=== PATIENT | female | born 1960 ===

== ENCOUNTER 2018-03-30 06:18 | Day surgery (SDC) | payer MEDICARE, OTHER ==
[2018-02-10 11:23] VITALS: BMI 37.8
[2018-03-30] MEDS ORDERED: Midazolam 2 MG/2 ML VIAL ONE (07:55)
[2018-03-30] MEDS ORDERED: Propofol 10 mg/ml Inj (20 ML) ONE (07:55)
[2018-03-30] MEDS ORDERED: Albuterol HFA 90 mcg/actuation (8 g) ONE (07:55)
[2018-03-30] MEDS ORDERED: Lactated Ringer's 1,000 ML IV ONE (08:20)
[2018-03-30 10:14] VITALS: BP 142/77; PULSE 72; RESP 15; TEMP 97.2; O2SAT 95
--- NOTE | 2018-04-04 05:43 | OP ---
Copied To: Jai Sousa MD Attending MD: Jai Sousa MD PROCEDURE DATE: 03/30/2018 PREOPERATIVE DIAGNOSIS: A 57-year-old with abnormal uterine bleeding, POSTOPERATIVE DIAGNOSIS: A 57-year-old with abnormal uterine bleeding SURGEON: Jai Sousa MD FEEDLOT MANAGER: None. ANESTHESIA: General anesthesia. COMPLICATIONS: None. ESTIMATED BLOOD LOSS: 20 mL. PROCEDURE PERFORMED: Dilatation and curettage, hysteroscopy, and MyoSure. DESCRIPTION OF PROCEDURE: After informed consent was obtained, the patient was brought to the operating room, placed on the table where general anesthesia was given. When anesthesia was found to be sufficient, the patient was prepped and draped in the normal sterile fashion. Armstrong catheter was inserted under sterile condition. Anterior lip of the cervix was grasped with a tenaculum. Gentle dilatation of the cervix was performed. Hysteroscope was introduced and was found that there was a polyp on the posterior wall of the uterus. The decision was made to use the MyoSure. MyoSure was introduced to remove the polyp. After that, sharp curettage of anterior of the lizama of the uterus was done, and ECC was sent to the pathology. After that, the hysteroscope was then introduced, no polyp was found. After that, tenaculum was taken out. The patient tolerated the procedure well. Lap, sponge, and instrument counts were correct x2. Jai Sousa MD
== END 2018-03-30 10:13 | disposition home or self-care (01) ==
LOC: C.SDS 06:18
PROVIDERS: ATTEND Obstetrics & Gynecology
DX: N84.0 Polyp of corpus uteri (principal); N95.0 Postmenopausal bleeding; N85.01 Benign endometrial hyperplasia; N93.9 Abnormal uterine and vaginal bleeding, unspecified
CPT/HCPCS: 58558; 88305; J2250; J2704; J3010; J7120

== ENCOUNTER 2018-09-30 14:02 | Outpatient (CLI) | payer MEDICARE | END 2018-09-30 14:03 | disposition home or self-care (01) | LOC: C.RADIC 14:02 ==

== ENCOUNTER 2019-01-05 12:20 | Outpatient (CLI) | payer MEDICARE, OTHER | END 2019-01-05 12:21 | disposition home or self-care (01) | LOC: C.RADIC 12:20 ==

== ENCOUNTER 2019-01-09 13:42 | Outpatient (CLI) | payer MEDICARE, OTHER | END 2019-01-09 13:43 | disposition home or self-care (01) | LOC: C.RADIC 13:42 | DX: Z01.818 Encounter for other preprocedural examination (principal) ==

== ENCOUNTER 2019-01-18 05:41 | Day surgery (SDC) | payer MEDICARE, OTHER ==
[2019-01-17 12:01] VITALS: BMI 39.4
[2019-01-18] MEDS ORDERED: Midazolam 2 MG/2 ML VIAL ONE (08:46)
[2019-01-18] MEDS ORDERED: Propofol 10 mg/ml Inj (20 ML) ONE (08:46)
[2019-01-18] MEDS ORDERED: HYDROmorphone 0.5 mg/0.5 ml ISec IVP PRN (09:52)
[2019-01-18 10:42] VITALS: BP 140/76; PULSE 68; RESP 18; TEMP 97; O2SAT 100
--- NOTE | 2019-01-26 02:49 | OP ---
PROCEDURE DATE: 01/18/2019 PROCEDURE PERFORMED: Dilatation and curettage, hysteroscopy, Myosure. COMPLICATIONS: None. ANESTHESIA: General. ANESTHESIOLOGIST: Oscar Keen MD ESTIMATED BLOOD LOSS: 20 mL. DEFICIT: 100 mL. DESCRIPTION OF THE PROCEDURE: After informed consent was obtained, the patient was brought to the operating room and placed on the table, where general anesthesia was given. Once the anesthesia was given, the patient was prepped and draped in a normal sterile fashion. Examination of the uterus revealed it to be 6 weeks' size. No pelvic or adnexal masses. Anterior lip of the cervix was grasped with a tenaculum. Gentle dilatation of the cervix was done and then hysteroscope was introduced and found thick endometrial polyp tissue on the posterior wall of the uterus. The decision was done to use a MyoSure. MyoSure was used to take out the polyp and it was sent to the pathology. After that, sharp curettage was done of the endometrium. It was sent to the pathology. ECC was done and sent to the pathology. The hysteroscope was then introduced again, and there was found to be no polyp. After that, tenaculum was taken out. The patient tolerated the procedure well. Lap, sponge, and instrument counts were correct x2 at the end of the case. Fluid deficit was 100 mL and EBL 20 mL. Jai Sousa MD
== END 2019-01-18 10:53 | disposition home or self-care (01) ==
LOC: C.SDS 05:41
PROVIDERS: ATTEND Obstetrics & Gynecology
DX: N84.0 Polyp of corpus uteri (principal); N95.0 Postmenopausal bleeding; N85.00 Endometrial hyperplasia, unspecified
CPT/HCPCS: 58558; 88305; J2250; J2704; J3010